=== PATIENT | female | born 1990 | race Caucasian/White ===

== ENCOUNTER 2025-08-08 19:40 | Emergency (ER) | payer OTHER, SELFPAY ==
--- NOTE | ~2025-08-08 | XR_ITS ---
XR knee RT 3V 08/08/2025 19:59 INDICATION: Right knee pain PROCEDURE: 3 views right knee COMPARISON: No prior studies for comparison. FINDINGS: Fracture, dislocation or subluxation is not identified. No significant joint effusion. The soft tissues appear within normal limits. No foreign bodies are identified. IMPRESSION: 1: NO ACUTE BONE OR JOINT ABNORMALITY IDENTIFIED. Reviewed, dictated and finalized at location O.
[2025-08-08 19:49] VITALS: BP 133/91; PULSE 94; RESP 16; TEMP 36.7; O2SAT 100
--- NOTE | 2025-08-08 19:54 | ED.GENADULT ---
HPI - General Adult General Chief complaint: Extremity Injury, Lower Stated complaint: R Knee Pain Source: patient Mode of arrival: ambulatory Limitations: no limitations History of Present Illness HPI narrative: Patient presents for evaluation of right knee pain for last few weeks. She cannot identify any specific cause or injury. 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 She states that she is up and down throughout the day and on her feet for approximately 12 hours at a time. Certain movements make her symptoms worse. She rates her pain 4-6 on scale of 1-10. She denies any radicular component. No paresthesias. She takes ibuoprofen occasionally but cannot say definitively whether it has made a difference in her symptoms. She is concerned about a ligamentous injury. Related Data Home Medications ?Medication ?Instructions ?Recorded ?Confirmed ?Last Taken ?Type paroxetine HCl 20 mg tablet mg PO 08/08/25 Unknown History Allergies Allergy/AdvReac Type Severity Reaction Status Date / Time No Known Allergies Allergy Verified 08/08/25 20:00 Review of Systems Review of Systems: CONSTITUTIONAL: Denies fever, chills, or sweats. EYES: Denies visual changes, redness, or discharge. ENT: Denies rhinorrhea, congestion, sore throat, or otalgia. CARDIOVASCULAR: Denies chest pain, palpitations, or edema. RESPIRATORY: Denies cough or dyspnea. GASTROINTESTINAL: Denies abdominal pain, nausea, vomiting, or diarrhea. GENITOURINARY: Denies dysuria or hematuria. SKIN: Denies rash or itching. MUSCULOSKELETAL: reports right knee pain. Denies other joint pain. NEUROLOGIC: Denies headache, numbness, dizziness, or weakness. PSYCHIATRIC: Denies anxiety or depression. [facility] Past Medical History Medical History No pertinent past medical history Surgical History Surgical History No pertinent past surgical history Family History Family History Mother Family history non-contributory Social History Social History Smoking status: Never smoker Substance use: never Additional occupation/education comments: owns daycare Gender identity (if verbalized by the patient): Female Exam Narrative: GENERAL: Well-appearing, well-nourished, and in no acute distress. HEAD: Normocephalic, atraumatic. EYES: PERRLA and EOMI. ENT: Nares clear, no rhinorrhea or epistaxis. Mucous membranes moist. Oropharynx without tonsillar hypertrophy exudate or other lesions. Bilateral TMs pearly frankel nonbulging NECK: Supple. No adenopathy or masses. No carotid bruits or JVD CHEST: Clear to auscultation. No respiratory distress. No wheezes rales or rhonchi HEART: Regular rate and rhythm. No murmur heard. Normal peripheral pulses. ABDOMEN: Soft, nontender, nondistended, normal active bowel sounds. EXTREMITIES: Normal range of motion. No edema. no tenderness in the right knee. Mild crepitus present. SKIN: Warm, dry, no rash. NEURO: No focal deficits. Alert and oriented x3. PSYCH: Normal mood and affect. Course Course Emergency Course: this is a 35-year-old female who presented for evaluation of right knee pain. X-ray negative for fracture. Exam consistent with strain. Advised on NSAIDs. Recommend RICE therapy. Provided with Jose wrap. Recommended she purchase a knee brace. Follow-up with primary provider. Go to the ER for worsening symptoms. Patient in agreement with plan of care. Level of Care: Express Care Visit Vital Signs Vital signs: Vital Signs Temperature 36.7 C 08/08/25 19:49 Pulse Rate 94 08/08/25 19:49 Respiratory Rate 16 08/08/25 19:49 Blood Pressure 133/91 H 08/08/25 19:49 Pulse Oximetry 100 08/08/25 19:49 Temperature 36.7 C 08/08/25 19:49 Pulse Rate 94 08/08/25 19:49 Respiratory Rate 16 08/08/25 19:49 Blood Pressure 133/91 H 08/08/25 19:49 Pulse Oximetry 100 08/08/25 19:49 Medical Decision Making Vital Signs Vital Signs: Vital Signs Temperature 36.7 C 08/08/25 19:49 Pulse Rate 94 08/08/25 19:49 Respiratory Rate 16 08/08/25 19:49 Blood Pressure 133/91 H 08/08/25 19:49 Pulse Oximetry 100 08/08/25 19:49 Temperature 36.7 C 08/08/25 19:49 Pulse Rate 94 08/08/25 19:49 Respiratory Rate 16 08/08/25 19:49 Blood Pressure 133/91 H 08/08/25 19:49 Pulse Oximetry 100 08/08/25 19:49 Imaging Data Radiologist's impression: XR knee RT 3V 08/08/2025 19:59 INDICATION: Right knee pain PROCEDURE: 3 views right knee COMPARISON: No prior studies for comparison. FINDINGS: Fracture, dislocation or subluxation is not identified. No significant joint effusion. The soft tissues appear within normal limits. No foreign bodies are identified. IMPRESSION: 1: NO ACUTE BONE OR JOINT ABNORMALITY IDENTIFIED. Discharge Plan Discharge Clinical Impression: Strain of right knee Patient Disposition: Home Condition: Stable Instructions: Antibiotic Form, Muscle Strain (DC) Additional Instructions: Application of ice should help. You can take ibuprofen by mouth or apply diclofenac gel to the right knee Please purchase a knee brace Elevate your right lower extremity when not ambulating Follow-up with your primary care provider Patient Language: Cuban Prescriptions: No Action paroxetine HCl 20 mg tablet PO Follow-up/Referrals: Gurjit Rae MD [Physician, Family Practice] Time of Disposition: 20:08
== END 2025-08-08 20:10 | disposition home or self-care (01) ==
PROVIDERS: Emergency Provider Nurse Practitioner
DX: S86.911A Strain of unspecified muscle(s) and tendon(s) at lower leg level, right leg, initial encounter (principal); X58.XXXA Exposure to other specified factors, initial encounter
CPT/HCPCS: 73562; 99203; G0463